=== PATIENT | female | born 1980 | race Caucasian/White ===

== ENCOUNTER 2019-07-03 08:16 | Outpatient (CLI) | payer OTHER | END 2019-07-03 08:20 | disposition home or self-care (01) | LOC: MAMO-SONO 08:16 | DX: Z12.31 Encounter for screening mammogram for malignant neoplasm of breast (principal); N60.11 Diffuse cystic mastopathy of right breast; N63.10 Unspecified lump in the right breast, unspecified quadrant; N63.20 Unspecified lump in the left breast, unspecified quadrant; N60.12 Diffuse cystic mastopathy of left breast ==

== ENCOUNTER 2020-01-29 13:54 | Outpatient (CLI) | payer OTHER | END 2020-01-29 14:00 | disposition home or self-care (01) | LOC: MRI 13:54 | PROVIDERS: ATTEND Urology | DX: M54.5 Low back pain (principal) | CPT/HCPCS: 72148 ==

== ENCOUNTER 2020-03-11 14:08 | Outpatient (CLI) | payer OTHER | END 2020-03-11 14:22 | disposition home or self-care (01) | LOC: RAD 14:08 | PROVIDERS: ATTEND Urology | DX: G31.89 Other specified degenerative diseases of nervous system (principal); M54.5 Low back pain ==

== ENCOUNTER 2020-07-08 09:29 | Outpatient (CLI) | payer OTHER | END 2020-07-08 09:35 | disposition home or self-care (01) | LOC: MAMO-SONO 09:29 | PROVIDERS: ATTEND Obstetrics & Gynecology | DX: N60.01 Solitary cyst of right breast (principal); N60.02 Solitary cyst of left breast; Z12.31 Encounter for screening mammogram for malignant neoplasm of breast; N64.59 Other signs and symptoms in breast ==

== ENCOUNTER 2022-07-26 08:22 | Outpatient (CLI) | payer OTHER | END 2022-07-26 08:28 | disposition home or self-care (01) | LOC: SONOGRAMA 08:22 | PROVIDERS: ATTEND Internal Medicine Gastroenterology | DX: R10.9 Unspecified abdominal pain (principal) ==

== ENCOUNTER 2022-09-30 07:55 | Outpatient (CLI) | payer OTHER | END 2022-09-30 08:03 | disposition home or self-care (01) | LOC: MAMO-SONO 07:55 | PROVIDERS: ATTEND Obstetrics & Gynecology | DX: N60.11 Diffuse cystic mastopathy of right breast (principal); Z12.31 Encounter for screening mammogram for malignant neoplasm of breast ==

== ENCOUNTER → 2023-05-14 13:33 | Outpatient (CLI) | payer OTHER | END | disposition home or self-care (01) | LOC: LAB 13:33 | PROVIDERS: ATTEND Urology | DX: N30.00 Acute cystitis without hematuria (principal) ==

== ENCOUNTER 2023-07-01 06:44 | Outpatient (CLI) | payer OTHER ==
[2023-07-01 07:36] LABS: PH,URINE 6.5 (5.0-8.0); URINE APPEARANCE Cloudy; URINE BILIRRUBIN Negative (NEGATIVE); URINE BLOOD Negative; URINE COLOR Yellow; URINE GLUCOSE Negative (NEGATIVE); URINE LEUKOCYTE Small; URINE NITRATE Negative; URINE PROTEIN Negative (NEGATIVE); URINE UROBILINOGEN 0.2 E.U./dl
[2023-07-01 07:41] LABS: URINE BACTERIA 168.7 uL (0.0-1933); URINE EPITHELIAL CELLS 6.4 uL (0.0-38.8); URINE WBC 17.1 uL (0.0-23.2)
== END 2023-07-01 06:49 | disposition home or self-care (01) ==
LOC: LAB 06:44
PROVIDERS: ATTEND Urology
DX: N30.10 Interstitial cystitis (chronic) without hematuria (principal)

== ENCOUNTER 2023-12-07 10:10 | Outpatient (CLI) | payer OTHER | END 2023-12-07 10:24 | disposition home or self-care (01) | LOC: MAMO-SONO 10:10 | PROVIDERS: ATTEND Obstetrics & Gynecology | DX: N60.11 Diffuse cystic mastopathy of right breast (principal) ==